=== PATIENT | female | born 1955 | race American Indian/Alaskan Native ===

== ENCOUNTER 2016-10-19 07:53 | Outpatient (CLI) | payer BC ==
--- NOTE | 2016-10-19 09:00 | Mammography Report ---
Bilateral mammogram: Compared to 06/27/15. CAD study utilized. Findings: Predominance of adipose tissue bilaterally. Benign densities bilaterally. Benign axillary nodes. There is increase in calcification compared to previous study at upper posterior left breast. Calcifications appear to be benign. Impression: Probably benign calcifications. Six-month followup recommended. BI-RADS CATEGORY: 3 = Probably benign ACR BI-RADS MAMMOGRAPHIC CODES: 0 = Needs additional imaging evaluation; 1 = Negative; 2 = Benign; 3 = Probably benign; 4 = Suspicious; 5 = Malignant; 6 = Known biopsy-proven malignancy COMMENT: 1. Dense breast tissue, i.e., adenosis, fibrocystic changes, etc., may obscure an underlying neoplasm. 2. Approximately 10% of cancers are not detected with mammography. 3. A negative mammography report should not delay biopsy if a clinically suspicious mass is present. COMMENT: Patient follow-up letters are generated in [employer].
== END 2016-10-19 07:54 | disposition home or self-care (01) ==
LOC: MAMMO 07:53
PROVIDERS: ATTEND Internal Medicine Hematology & Oncology
DX: Z12.31 Encounter for screening mammogram for malignant neoplasm of breast (principal)
CPT/HCPCS: 77067; G0202

== ENCOUNTER 2017-08-22 00:50 | Outpatient (CLI) | payer BC ==
[2017-08-24 10:37] LABS: Hematocrit 39.8 % (30.3-42.9); Hemoglobin 13.3 gm/dl (10.1-14.3); Mean Corpuscular HGB Conc 34 % (30-34); Mean Corpuscular Hemoglobin 29 pg (28-32); Mean Corpuscular Volume 85 fl (79-97); Platelet Count 212 K/mm3 (140-440); Red Blood Count 4.68 M/mm3 (3.65-5.03); Red Cell Distribution Width 14.4 % (13.2-15.2)
[2017-08-24 10:48] LABS: Alanine Aminotransferase 29 units/L (7-56); Albumin 4.6 g/dL (3.9-5); BUN/Creatinine Ratio 27; Blood Urea Nitrogen 16 mg/dL (7-17); Chol/HDL Ratio 2.45 %; HDL Cholesterol 110 mg/dL (40-59); Hemolysis Index 5; LDL Cholesterol,Direct 162 mg/dL (50-130)
[2017-08-24 10:49] LABS: Free T4 (Free Thyroxine) 0.91 ng/dL (0.76-1.46)
== END 2017-08-22 00:51 | disposition home or self-care (01) ==
LOC: LAB 00:50
PROVIDERS: ATTEND Internal Medicine Hematology & Oncology
DX: E78.4 Other hyperlipidemia (principal); E55.9 Vitamin D deficiency, unspecified; R53.1 Weakness; R73.09 Other abnormal glucose; R94.6 Abnormal results of thyroid function studies
CPT/HCPCS: 36415; 80053; 80061; 82306; 83036; 84439; 84443; 85027

== ENCOUNTER 2017-11-05 08:03 | Outpatient (CLI) | payer BC ==
--- NOTE | 2017-11-05 09:27 | Mammography Report ---
Bilateral mammogram: Compared to 10/19/16 and 06/27/15. CAD study utilized. Findings: Predominance of adipose tissue bilaterally. Bilateral benign calcifications and benign densities. Benign axillary nodes. Impression: Benign findings. Annual followup recommended. BI-RADS CATEGORY: 2 = Benign ACR BI-RADS MAMMOGRAPHIC CODES: 0 = Needs additional imaging evaluation; 1 = Negative; 2 = Benign; 3 = Probably benign; 4 = Suspicious; 5 = Malignant; 6 = Known biopsy-proven malignancy COMMENT: 1. Dense breast tissue, i.e., adenosis, fibrocystic changes, etc., may obscure an underlying neoplasm. 2. Approximately 10% of cancers are not detected with mammography. 3. A negative mammography report should not delay biopsy if a clinically suspicious mass is present. COMMENT: Patient follow-up letters are generated in [employer].
== END 2017-11-05 08:04 | disposition home or self-care (01) ==
LOC: MAMMO 08:03
PROVIDERS: ATTEND Internal Medicine Hematology & Oncology
DX: Z12.31 Encounter for screening mammogram for malignant neoplasm of breast (principal)
CPT/HCPCS: 77067

== ENCOUNTER 2018-03-16 08:21 | Outpatient (CLI) | payer BC ==
[2018-03-16 08:45] LABS: Hematocrit 39.8 % (30.3-42.9); Hemoglobin 13.5 gm/dl (10.1-14.3); Mean Corpuscular HGB Conc 34 % (30-34); Mean Corpuscular Hemoglobin 29 pg (28-32); Mean Corpuscular Volume 85 fl (79-97); Platelet Count 202 K/mm3 (140-440); Red Blood Count 4.66 M/mm3 (3.65-5.03); Red Cell Distribution Width 13.9 % (13.2-15.2)
[2018-03-16 09:13] LABS: Alanine Aminotransferase 34 units/L (7-56); BUN/Creatinine Ratio 18; Blood Urea Nitrogen 9 mg/dL (7-17); Calcium 9.7 mg/dL (8.4-10.2); Hemolysis Index 6; LDL Cholesterol,Direct 168 mg/dL (50-130)
[2018-03-16 09:27] LABS: Chol/HDL Ratio 2.01 %; HDL Cholesterol 136 mg/dL (40-59)
== END 2018-03-16 08:22 | disposition home or self-care (01) ==
LOC: LAB 08:21
PROVIDERS: ATTEND Internal Medicine Hematology & Oncology
DX: D64.9 Anemia, unspecified (principal)
CPT/HCPCS: 36415; 80053; 80061; 82306; 83036; 85027

== ENCOUNTER 2018-06-27 07:50 | Outpatient (CLI) | payer BC ==
[2018-06-27 08:15] LABS: Hematocrit 38.2 % (30.3-42.9); Hemoglobin 12.9 gm/dl (10.1-14.3); Mean Corpuscular HGB Conc 34 % (30-34); Mean Corpuscular Volume 86 fl (79-97); Platelet Count 228 K/mm3 (140-440); Red Blood Count 4.46 M/mm3 (3.65-5.03); Red Cell Distribution Width 14.3 % (13.2-15.2)
--- NOTE | 2018-06-27 08:33 | XRay Report ---
ROUTINE CHEST, TWO VIEWS: HISTORY: Cough. The trachea, heart, mediastinal contour, lung talley and bony thorax are unremarkable. Eventration of the anterior right hemidiaphragm is noted. IMPRESSION: Unremarkable chest x-ray.
[2018-06-27 08:35] LABS: Alanine Aminotransferase 35 units/L (7-56); Albumin 4.5 g/dL (3.9-5); BUN/Creatinine Ratio 18; Blood Urea Nitrogen 11 mg/dL (7-17); Calcium 9.8 mg/dL (8.4-10.2); Chol/HDL Ratio 2.75 %; HDL Cholesterol 97 mg/dL (40-59); Hemolysis Index 4; LDL Cholesterol,Direct 188 mg/dL (50-130)
== END 2018-06-27 07:51 | disposition home or self-care (01) ==
LOC: XRAY 07:50
PROVIDERS: ATTEND Internal Medicine Hematology & Oncology
DX: R05 Cough (principal)
CPT/HCPCS: 36415; 71046; 80053; 80061; 82306; 83036; 85027; 86140

== ENCOUNTER 2019-05-23 07:59 | Outpatient (CLI) | payer BC | END 2019-05-23 08:00 | disposition home or self-care (01) | LOC: CARD 07:59 | PROVIDERS: ATTEND Internal Medicine Hematology & Oncology | DX: Z01.818 Encounter for other preprocedural examination (principal) | CPT/HCPCS: 93005; 93010 ==

== ENCOUNTER 2020-03-04 04:02 | Outpatient (CLI) | payer BC ==
[2020-03-04 06:53] LABS: Hematocrit 37.1 % (30.3-42.9); Hemoglobin 12.4 gm/dl (10.1-14.3); Mean Corpuscular HGB Conc 34 % (30-34); Mean Corpuscular Volume 85 fl (79-97); Platelet Count 239 K/mm3 (140-440); Red Blood Count 4.37 M/mm3 (3.65-5.03)
[2020-03-04 07:27] LABS: Alanine Aminotransferase 29 units/L (7-56); Albumin 4.4 g/dL (3.9-5); Blood Urea Nitrogen 11 mg/dL (7-17); Chol/HDL Ratio 1.87 %; HDL Cholesterol 102 mg/dL (40-59); Hemolysis Index 3; LDL Cholesterol,Direct 92 mg/dL (50-130)
[2020-03-04 07:35] LABS: BUN/Creatinine Ratio 22
== END 2020-03-04 04:03 | disposition home or self-care (01) ==
LOC: LAB 04:02
PROVIDERS: ATTEND Internal Medicine Hematology & Oncology
DX: Z00.00 Encounter for general adult medical examination without abnormal findings (principal)
CPT/HCPCS: 36415; 80053; 80061; 82306; 82607; 83036; 85027; 85379; 86140

== ENCOUNTER 2020-04-12 10:14 | Outpatient (CLI) | payer BC ==
--- NOTE | 2020-04-12 11:45 | XRay Report ---
CHEST 1 VIEW INDICATION: COUGH. COMPARISON: None FINDINGS: Support devices: None. Heart: Within normal limits. Lungs/Pleura: No acute air space or interstitial disease. Additional findings: None. IMPRESSION: No acute findings. LEFT CLAVICLE 2 VIEWS INDICATION: Soft tissue lymph node. COMPARISON: None. IMPRESSION: No acute osseous or soft tissue abnormality. No significant DJD. Signer Name: Spenser Garza Jr, MD Signed: 04/12/2020 11:41 AM Workstation Name: [id number]
--- NOTE | 2020-04-12 17:16 | Mammography Report ---
DIGITAL SCREENING MAMMOGRAM WITH CAD, 04/12/2020 CLINICAL INFORMATION / INDICATION: Routine screening mammography. TECHNIQUE: Digital bilateral 2D mammography was obtained in the craniocaudal and mediolateral obliqu e projections. This examination was interpreted with the benefit of Computer-Aided Detection analysis . COMPARISON: 11/05/2017 FINDINGS: Breast Density: There are scattered areas of fibroglandular density. No dominant mass, suspicious calcifications, or architectural distortion in either breast. Mild right nodularity is stable. IMPRESSION: No mammographic evidence of malignancy. Follow up recommendation: Routine yearly BI-RADS Category 2: Benign. A "normal" or negative report should not discourage follow up or biopsy of a clinically significant f inding. A written summary of these findings will be mailed to the patient. The patient will be entered into a mammography reporting system which will generate a reminder letter for the patient's next appointmen t at the appropriate interval. The [employer] recommends yearly mammograms starting at age 40 and continuing as l michelle as a woman is in good health. Breast MRI is recommended for women with an approximate 20-25% or greater lifetime risk of breast cancer, including women with a strong family history of breast or ova aysha cancer or who have been treated for Hodgkin's disease. Signer Name: Roger Merino MD Signed: 04/12/2020 5:12 PM Workstation Name: [id number]
== END 2020-04-12 10:15 | disposition home or self-care (01) ==
LOC: MAMMO 10:14
PROVIDERS: ATTEND Internal Medicine Hematology & Oncology
DX: Z12.31 Encounter for screening mammogram for malignant neoplasm of breast (principal); R05 Cough; R22.1 Localized swelling, mass and lump, neck
CPT/HCPCS: 71046; 77067

== ENCOUNTER 2020-10-01 12:13 | Outpatient (CLI) | payer BC ==
--- NOTE | 2020-10-01 13:14 | XRay Report ---
RIGHT SHOULDER HISTORY: Right shoulder pain. COMPARISON: 04/12/2020. TECHNIQUE: 3 views of the right shoulder were obtained. FINDINGS: Bones: No fracture or dislocation. Joint spaces: Maintained. Soft tissues: No significant abnormality. Additional findings: None. IMPRESSION: 1. No significant abnormality. Signer Name: Onel Bishop MD Signed: 10/01/2020 1:07 PM Workstation Name: [id number]
== END 2020-10-01 12:14 | disposition home or self-care (01) ==
LOC: XRAY 12:13
PROVIDERS: ATTEND Internal Medicine Hematology & Oncology
DX: M25.511 Pain in right shoulder (principal)

== ENCOUNTER 2021-05-12 08:05 | Outpatient (CLI) | payer BC ==
--- NOTE | 2021-05-12 11:56 | Mammography Report ---
DIGITAL SCREENING MAMMOGRAM WITH CAD, 05/12/2021 CLINICAL INFORMATION / INDICATION: Routine screening mammography. SCREENING MAMMOGRAM TECHNIQUE: Digital bilateral 2D mammography was obtained in the craniocaudal and mediolateral obliqu e projections. This examination was interpreted with the benefit of Computer-Aided Detection analysis . COMPARISON: 11/05/2017, 04/12/2020 FINDINGS: Breast Density: There are scattered areas of fibroglandular density. No dominant mass, suspicious calcifications, or architectural distortion in either breast. No interval change. IMPRESSION: No mammographic evidence of malignancy. Follow up recommendation: Routine yearly BI-RADS Category 1: Negative. A "normal" or negative report should not discourage follow up or biopsy of a clinically significant f inding. A written summary of these findings will be mailed to the patient. The patient will be entered into a mammography reporting system which will generate a reminder letter for the patient's next appointmen t at the appropriate interval. The [employer] recommends yearly mammograms starting at age 40 and continuing as l michelle as a woman is in good health. Breast MRI is recommended for women with an approximate 20-25% or greater lifetime risk of breast cancer, including women with a strong family history of breast or ova aysha cancer or who have been treated for Hodgkin's disease. Signer Name: Rhea Medina MD Signed: 05/12/2021 11:51 AM Workstation Name: [id number]
== END 2021-05-12 08:06 | disposition home or self-care (01) ==
LOC: MAMMO 08:05
PROVIDERS: ATTEND Internal Medicine Hematology & Oncology
DX: Z12.31 Encounter for screening mammogram for malignant neoplasm of breast (principal)
CPT/HCPCS: 77067

== ENCOUNTER 2021-10-23 08:35 | Outpatient (CLI) | payer BC ==
[2021-10-23 09:23] LABS: Hematocrit 36.3 % (30.3-42.9); Hemoglobin 12.5 gm/dl (10.1-14.3); Mean Corpuscular HGB Conc 34 % (30-34); Mean Corpuscular Volume 85 fl (79-97); Platelet Count 245 K/mm3 (140-440); Red Cell Distribution Width 14.2 % (13.2-15.2)
[2021-10-23 10:09] LABS: % Iron Saturation 22.99 %; Alanine Aminotransferase 32 units/L (7-56); Albumin 4.7 g/dL (3.9-5); Blood Urea Nitrogen 12 mg/dL (7-17); Calcium 10.4 mg/dL (8.4-10.2); Chol/HDL Ratio 2.33 %; HDL Cholesterol 104 mg/dL (40-59); Hemolysis Index 12; Iron 80 ug/dL (37-170); LDL Cholesterol,Direct 124 mg/dL (50-130); Total Iron Binding Capacity 348 mcg/dL (250-450)
[2021-10-23 10:15] LABS: BUN/Creatinine Ratio 17
--- NOTE | 2021-10-23 10:48 | Mammography Report ---
DEXA BONE DENSITY SCAN INDICATION / CLINICAL INFORMATION: M85.80. 66 years Female COMPARISON: None available. LUMBAR SPINE, L1-L4: - Bone mineral density (BMD) = 0.863 g/cm2. - T-score = -1.7 - Change (%) since most recent prior (if available): None available. LEFT HIP, NECK : - Bone mineral density (BMD) = 0.799 g/cm2. - T-score = -0.4 - Change (%) since most recent prior (if available): None available. IMPRESSION: 1. WHO Classification: Osteopenia. Fracture Risk: Increased. 2. 10-Year Fracture Risk (FRAX) = Major Osteoporotic 2.9% / Hip: 0.1% FRAX generally not reported for patients with normal or osteoporotic BMD, in tyb-ktzxaxt-rhbppor diego ents younger than age 50, or in patients undergoing pharmacotherapy BMD Reporting Guidelines (ISCD, 2015) BMD Reporting in Postmenopausal Women and in Men Age 50 and Older - T-scores are preferred. - The WHO densitometric classification is applicable. BMD Reporting in Females Prior to Menopause and in Males Younger Than Age 50 - Z-scores, not T-scores, are preferred. This is particularly important in children. - A Z-score of -2.0 or lower is defined as below the expected range for age, and a Z-score above -2.0 is within the expected range for age. - Osteoporosis cannot be diagnosed in men under age 50 on the basis of BMD alone. - The WHO diagnostic criteria may be applied to women in the menopausal transition. http://www.iscd.org/official-positions/1947-hhbh-jrdmlnmg-positions-adult/ Signer Name: Alexander Charles MD Signed: 10/23/2021 10:44 AM Workstation Name: [id number]
--- NOTE | 2021-10-23 14:48 | XRay Report ---
CHEST 2 VIEWS INDICATION / CLINICAL INFORMATION: ANNUAL PHYSICAL. COMPARISON: 04/12/2020 FINDINGS: SUPPORT DEVICES: None. HEART / MEDIASTINUM: No significant abnormality. LUNGS / PLEURA: No significant pulmonary or pleural abnormality. No pneumothorax. ADDITIONAL FINDINGS: No significant additional findings. IMPRESSION: 1. No acute findings. Signer Name: Juan Whitehead MD Signed: 10/23/2021 2:43 PM Workstation Name: [id number]
[2021-10-26 11:46] LABS: Vitamin D, 25-OH, D2 4 ng/mL
== END 2021-10-23 08:36 | disposition home or self-care (01) ==
LOC: MAMMO 08:35
PROVIDERS: ATTEND Internal Medicine Hematology & Oncology
DX: Z00.00 Encounter for general adult medical examination without abnormal findings (principal); M85.88 Other specified disorders of bone density and structure, other site
CPT/HCPCS: 36415; 71046; 77080; 80053; 80061; 82306; 82607; 83036; 83550; 85027; 86140